=== PATIENT | female | born 1980 | race African-American/Black ===

== ENCOUNTER 2017-05-20 09:15 | Emergency (ER) | payer MEDICAID, OTHER ==
[~2017-05-20] VITALS: Ht 149.9 cm; Wt 83.0 kg
[~2017-05-20 09:15] MED LIST: NO MEDS
[2017-05-20 09:16] VITALS: BP 126/84
== END 2017-05-20 10:05 | disposition home or self-care (01) ==
LOC: ER 09:15
DX: H60.91 Unspecified otitis externa, right ear (principal)
CPT/HCPCS: 99283

== ENCOUNTER 2017-10-29 21:48 | Emergency (ER) | payer OTHER ==
[~2017-10-29] VITALS: Ht 149.9 cm; Wt 82.0 kg
[2017-10-29] MEDS ORDERED: HYDROCODONE/ACETAMINOPHEN 5/325MG TABLET PO ONE (23:15)
[2017-10-29] MEDS ORDERED: IBUPROFEN 600MG TABLET PO ONE (23:15)
[2017-10-29 23:41] VITALS: BP 145/88
== END 2017-10-29 23:43 | disposition home or self-care (01) ==
LOC: ER 23:04
DX: H92.02 Otalgia, left ear (principal); Z90.49 Acquired absence of other specified parts of digestive tract
CPT/HCPCS: 99283

== ENCOUNTER 2022-04-06 20:09 | Emergency (ER) | payer OTHER ==
[~2022-04-06] VITALS: Ht 149.9 cm; Wt 87.4 kg
[2022-04-06 20:15] VITALS: BP 150/86
[2022-04-06] MEDS ORDERED: METH-653 MT (22:04)
[2022-04-06] MEDS ORDERED: IBUP-2029 MT (22:04)
== END 2022-04-06 22:25 | disposition home or self-care (01) ==
LOC: ER 20:09
DX: S33.5XXA Sprain of ligaments of lumbar spine, initial encounter (principal); I10 Essential (primary) hypertension; E78.00 Pure hypercholesterolemia, unspecified; E11.9 Type 2 diabetes mellitus without complications; Z90.49 Acquired absence of other specified parts of digestive tract; V49.9XXA Car occupant (driver) (passenger) injured in unspecified traffic accident, initial encounter; Y93.89 Activity, other specified; Y92.89 Other specified places as the place of occurrence of the external cause; Y99.8 Other external cause status
CPT/HCPCS: 99283